=== PATIENT | female | born 1955 | race American Indian/Alaskan Native ===

== ENCOUNTER 2017-10-17 05:15 | Day surgery (SDC) | payer OTHER ==
[2017-10-17] MEDS ORDERED: Midazolam 1 MG/ML 2 ML SDV IV ONE ×3 (05:16→06:32)
[2017-10-17] MEDS ORDERED: fentaNYL 100 MCG/2 ML SDV IV ONE ×3 (05:16→06:31)
[2017-10-17] MEDS ORDERED: Sodium Chloride 0.9% 10 ML Syringe FLUSH PRN (06:00)
[2017-10-17] MEDS ORDERED: Dextrose 5%-0.45% NaCl 1,000 ML IV SCH (06:00)
[2017-10-17] MEDS ORDERED: fentaNYL 100 MCG/2 ML SDV ONE (06:16)
[2017-10-17] MEDS ORDERED: Midazolam 1 MG/ML 2 ML SDV ONE (06:16)
--- NOTE | 2017-10-17 07:45 | OR ---
DATE: 10/17/2017 PROCEDURE: Esophagogastroduodenoscopy and multiple pinch biopsies. INSTRUMENT USED: GIF-H180 Olympus video panendoscope. PREMEDICATIONS: No oral topical anesthesia used. Fentanyl 100 mcg intravenous, Versed 2 mg intravenous. Nasal O2 cannula. The procedure was done under pulse oximetry, BP recording, and cardiac/vascular sonographer. INDICATION: The patient with persistent longstanding heartburn and coughing spells, on high-dose PPI as well as nocturnal H2RA with persistent coughing spells and heartburn. DESCRIPTION OF PROCEDURE: Esophagogastroduodenoscopy is performed for detection of any active erosive lesions. Cortez esophagus and/or malignancy also under consideration. H. pylori status to be determined. Biopsies to be obtained for esophageal eosinophilia if indicated, endoscopic hemostasis therapy if needed. The scope was passed with ease. Adequate visualization of the esophagus was made from proximal to distal areas. No upper esophageal lesions identified. No distal esophageal stricture. No uphill or downhill esophageal varices. No Miranda-Acosta tear. No evidence of erosive esophagitis by [place] criteria. No esophageal polyp or tumor mass identified. Z-line was seen at around 36 cm distal to the oral verge. Multiple four-quadrant biopsies were taken from the pink columnar epithelium at 36 cm distal to the oral verge and sent for any histopathologic evidence of intestinal metaplasia. Four-quadrant biopsies were also taken from the distal and proximal esophagus and sent for any histopathologic evidence of esophageal eosinophilia. No proximal gastric varices noted. Gastric fundus examination by retroflexion showed no malignant lesions. Numerous diminutive benign-appearing polyps were noted in the gastric fundus and the body, also noted in the gastric antrum was 3-mm sized benign- appearing polyp. Biopsies were obtained from the antral polyp and sent for histopathology. No gastric ulcer, malignant mass, or vascular ectasia identified. Multiple pinch biopsies were obtained from the gastric antrum and proximal body and sent for PyloriTek test for H. pylori and histopathology. Duodenal bulb showed no ulcer. Visualized second part of the duodenum was unremarkable. No bleeding was noted from any of the visualized areas at the completion of examination. Photographs were taken of the duodenal bulb, gastric antrum, fundus, and distal esophagus. IMPRESSION: Diminutive gastric polyps. The patient tolerated the procedure well. [facility] /[id number]
== END 2017-10-17 08:50 | disposition home or self-care (01) ==
LOC: DL.ENDO 05:15
PROVIDERS: ATTEND Internal Medicine Gastroenterology
DX: K31.7 Polyp of stomach and duodenum (principal); K21.9 Gastro-esophageal reflux disease without esophagitis; J45.909 Unspecified asthma, uncomplicated; F31.9 Bipolar disorder, unspecified; Z88.0 Allergy status to penicillin; Z88.2 Allergy status to sulfonamides; Z88.8 Allergy status to other drugs, medicaments and biological substances
CPT/HCPCS: 43239; 87077; J2250; J3010; J7042; 88305